=== PATIENT | male | born 1970 | race Caucasian/White ===

== ENCOUNTER 2017-06-26 20:36 | Emergency (ER) | payer MEDICAID ==
[~2017-06-26] VITALS: Ht 188 cm; Wt 93.0 kg
[2017-06-26 21:05] VITALS: BP 152/92
== END 2017-06-26 23:32 | disposition left against medical advice (07) ==
LOC: ER 20:46
DX: R10.9 Unspecified abdominal pain (principal); R11.2 Nausea with vomiting, unspecified; Z53.21 Procedure and treatment not carried out due to patient leaving prior to being seen by health care provider

== ENCOUNTER 2018-02-20 09:59 | Inpatient (IN) | payer MEDICAID ==
[~2018-02-20] VITALS: Ht 188 cm; Wt 88.5 kg
[~2018-02-20 09:59] MED LIST: PANT40T; SUCR1TAB
[2018-02-20 11:15] LABS: Basophils # (auto) 0.1 uL; Basophils % (auto) 1.2 % (0.0-2.0); Eosinophils # (auto) 0.1 uL; Eosinophils % (auto) 1.6 % (0.0-7.0); Hematocrit 44.5 % (41.0-53.0); Hemoglobin 14.9 g/dL (13.5-17.5); Lymphocytes % (auto) 20.2 % (10.0-50.0); Mean Corpuscular Hemoglobin 33.4 pg (28.0-32.0); Mean Corpuscular Hgb Conc. 33.4 g/dL (32.0-36.0); Mean Corpuscular Volume 99.9 fL (80.0-100.0); Monocytes # (auto) 0.7 uL; Monocytes % (auto) 14.2 % (0.0-12.0); Neutrophils # (auto) 3.3 uL; Neutrophils % (auto) 62.8 % (37.0-80.0); Nucleated Red Blood Cells % 0.1 %; Platelet Count (auto) 341 10^3/uL (140-450); Red Blood Cells 4.46 10^6/uL (4.5-5.90); Red Cell Distribution Width 13.8 % (11.8-14.3); White Blood Cell 5.2 10^3/uL (4.4-10.8)
[2018-02-20 11:34] LABS: Albumin 3.3 g/dL (3.4-5.0); BUN/Creatinine Ratio 7.3; Bilirubin, Total 1.9 mg/dL (0.2-1.0); Calcium 8.5 mg/dL (8.5-10.1); Potassium 3.9 mmol/L (3.5-5.1); Total Protein 8.6 g/dL (6.4-8.2)
[2018-02-20] MEDS ORDERED: SODIUM CHLORIDE 0.9% 1,000 ML IVB ONE (11:40)
[2018-02-20] MEDS ORDERED: PANTOPRAZOLE 40 MG/10 ML VIAL IV STA (11:40)
[2018-02-20] MEDS ORDERED: MORPHINE SULFATE 4 MG/ML SYR/VIAL IV ONE (11:45)
[2018-02-20] MEDS ORDERED: METOCLOPRAMIDE HCL 5MG/ml INJ 2ml VIAL IV ONE (11:45)
[2018-02-20 11:59] LABS: Amylase 77 U/L (25-115); Lipase 912 U/L (73-393)
[2018-02-20] MEDS ORDERED: IOHEXOL 300 MG/ML 100ML BOTTLE IJ ONE (13:02)
[2018-02-20] MEDS ORDERED: SODIUM CHLORIDE 0.9% 1,000 ML IV SCH (14:13)
[2018-02-20] MEDS ORDERED: THIAMINE 100mg/ml INJ (200mg/2ml VIAL) IV ONE (14:15)
[2018-02-20] MEDS ORDERED: LORazepam 2MG/ML-1ML VIAL IV PRN (14:15)
[2018-02-20] MEDS ORDERED: chlordiazePOXIDE HCL 25 MG CAP PO PRN (14:15)
[2018-02-20] MEDS ORDERED: MORPHINE SULFATE 4 MG/ML SYR/VIAL IV PRN (14:15)
[2018-02-20] MEDS ORDERED: NITROGLYCERIN 0.4 MG SL TAB SL PRN (14:15)
[2018-02-20] MEDS ORDERED: LEVOFLOXACIN 500MG 100 ML IV ONE (14:30)
[2018-02-20] MEDS: MORPHINE SULFATE 4 MG/ML SYR/VIAL IV PRN ×2 (16:24→21:05)
[2018-02-20 16:33] VITALS: BP 122/76
[2018-02-20 17:10] LABS: INR 1.2 (0.9-1.15); Prothrombin Time 13.1 sec (9.37-12.3)
[2018-02-20] MEDS: LACTATED RINGER'S 1,000 ML IV SCH ×2 (17:44→23:21)
[2018-02-20] MEDS: chlordiazePOXIDE HCL 5 MG CAP PO SCH ×2 (17:44→23:32)
[2018-02-20] MEDS: PROMETHAZINE HCL 25 MG/ML 1ML IV PRN (17:45)
[2018-02-20 17:53] LABS: Urine Bacteria NONE SEEN /hpf (None Seen); Urine Blood Negative /uL (Negative); Urine WBC <1 /hpf (0 - 3)
[2018-02-20] MEDS ORDERED: METH10T PO (17:59)
[2018-02-20] MEDS ORDERED: GABA-339 PO (17:59)
[2018-02-20 18:10] LABS: Hematocrit 41.5 % (41.0-53.0)
[2018-02-20] MEDS: metroNIDAZOLE 500MG/100ML 100 ML IV SCH (21:05)
[2018-02-20] MEDS: PANTOPRAZOLE 40 MG/10 ML VIAL IV SCH (21:05)
[2018-02-20 22:22] VITALS: BP 130/82
[2018-02-21] MEDS: PROMETHAZINE HCL 25 MG/ML 1ML IV PRN ×4 (00:14→19:57)
[2018-02-21] MEDS: KETOROLAC TROMETH 30 MG/ML 1ML VIAL IV ONE ×2 (00:28→00:36)
[2018-02-21] MEDS: MORPHINE SULFATE 4 MG/ML SYR/VIAL IV PRN ×6 (01:01→23:48)
[2018-02-21 01:15] LABS: Hematocrit 41.7 % (41.0-53.0); Hemoglobin 14.2 g/dL (13.5-17.5)
[2018-02-21 04:31] VITALS: BP 144/72
[2018-02-21 05:38] LABS: Basophils # (auto) 0 uL; Eosinophils # (auto) 0 uL; Hemoglobin 14.7 g/dL (13.5-17.5)
[2018-02-21 05:43] LABS: Basophils % (auto) 0.4 % (0.0-2.0); Eosinophils % (auto) 0.3 % (0.0-7.0); Hematocrit 43.2 % (41.0-53.0); Mean Corpuscular Hemoglobin 34.6 pg (28.0-32.0); Mean Corpuscular Hgb Conc. 34.1 g/dL (32.0-36.0); Mean Corpuscular Volume 101.4 fL (80.0-100.0); Monocytes # (auto) 0.9 uL; Monocytes % (auto) 11.1 % (0.0-12.0); Neutrophils # (auto) 6.2 uL; Neutrophils % (auto) 76.2 % (37.0-80.0); Nucleated Red Blood Cells % 0.1 %; Platelet Count (auto) 256 10^3/uL (140-450); Red Blood Cells 4.26 10^6/uL (4.5-5.90); Red Cell Distribution Width 13.6 % (11.8-14.3); White Blood Cell 8.1 10^3/uL (4.4-10.8)
[2018-02-21 06:23] LABS: Albumin 2.7 g/dL (3.4-5.0); BUN/Creatinine Ratio 8.5; Calcium 7.9 mg/dL (8.5-10.1); Potassium 3.8 mmol/L (3.5-5.1)
[2018-02-21] MEDS: chlordiazePOXIDE HCL 5 MG CAP PO SCH ×3 (06:26→23:47)
[2018-02-21] MEDS: metroNIDAZOLE 500MG/100ML 100 ML IV SCH (06:26)
[2018-02-21] MEDS: LACTATED RINGER'S 1,000 ML IV SCH ×3 (06:27→18:34)
[2018-02-21 06:39] LABS: Bilirubin, Total 3.5 mg/dL (0.2-1.0); Total Protein 7.8 g/dL (6.4-8.2)
[2018-02-21 07:00] VITALS: BP 138/69
[2018-02-21 07:51] LABS: Cholesterol 122 mg/dL (< 200); HDL Cholesterol 37 mg/dL (40-59); LDL Cholesterol 81 mg/dL (< 100); Triglycerides 94 mg/dL (< 150)
[2018-02-21] MEDS ORDERED: LIDOCAINE VISCOUS 2% 15ML UD ONE (08:21)
[2018-02-21] MEDS ORDERED: diphenhdrAMINE HCL 50 MG/1 ML VL ONE (08:22)
[2018-02-21] MEDS: PANTOPRAZOLE 40 MG/10 ML VIAL IV SCH ×2 (09:01→21:57)
[2018-02-21] MEDS: THIAMINE 100mg/ml INJ (200mg/2ml VIAL) IV SCH (09:02)
[2018-02-21] MEDS ORDERED: LEVOFLOXACIN 500MG 100 ML IV SCH (10:00)
[2018-02-21] MEDS: MIDAZOLAM HCL 5 MG/ML-1ML VIAL ONE ×3 (10:48→10:54)
[2018-02-21] MEDS: fentaNYL CITRATE 100 MCG/2 ML VL ONE ×2 (10:48→10:51)
[2018-02-21 12:03] VITALS: BP 146/91
[2018-02-21] MEDS ORDERED: METHADONE HCL 10 MG TAB PO ONE (13:00)
[2018-02-21 15:21] LABS: Alcohol, Urine < 3.0 mg/dL (0-5); Amphetamine Screen, Urine NEGATIVE (NEGATIVE); Barbiturate Scree,Urine NEGATIVE (NEGATIVE); Benzodiazephine Screen, Urine POSITIVE (NEGATIVE); Cannabinoid Screen, Urine NEGATIVE (NEGATIVE); Cocaine Screen, Urine NEGATIVE (NEGATIVE); Opiate Scree,Urine POSITIVE (NEGATIVE); Phencyclidine Screen, Urine POSITIVE (NEGATIVE)
[2018-02-21 16:31] VITALS: BP 158/88
[2018-02-21 22:24] VITALS: BP 156/85
[2018-02-22] MEDS: LACTATED RINGER'S 1,000 ML IV SCH ×3 (00:30→15:00)
[2018-02-22] MEDS: MORPHINE SULFATE 4 MG/ML SYR/VIAL IV PRN ×3 (03:59→12:18)
[2018-02-22 05:15] VITALS: BP 142/77
[2018-02-22] MEDS: chlordiazePOXIDE HCL 5 MG CAP PO SCH ×2 (05:59→11:55)
[2018-02-22 06:27] LABS: Eosinophils # (auto) 0.2 uL; Hemoglobin 14.6 g/dL (13.5-17.5); Lymphocytes # (auto) 1.4 uL; Mean Corpuscular Volume 100.4 fL (80.0-100.0); Red Cell Distribution Width 13.2 % (11.8-14.3); White Blood Cell 7.3 10^3/uL (4.4-10.8)
[2018-02-22 06:30] LABS: Basophils # (auto) 0.1 uL; Basophils % (auto) 1.1 % (0.0-2.0); Eosinophils % (auto) 3.1 % (0.0-7.0); Hematocrit 41.8 % (41.0-53.0); Lymphocytes % (auto) 19.4 % (10.0-50.0); Mean Corpuscular Hgb Conc. 34.9 g/dL (32.0-36.0); Monocytes % (auto) 14.3 % (0.0-12.0); Neutrophils # (auto) 4.5 uL; Neutrophils % (auto) 62.1 % (37.0-80.0); Nucleated Red Blood Cells % 0.4 %; Platelet Count (auto) 232 10^3/uL (140-450); Red Blood Cells 4.16 10^6/uL (4.5-5.90)
[2018-02-22 06:31] LABS: Mean Corpuscular Hemoglobin 34.5 pg (28.0-32.0)
[2018-02-22 06:48] LABS: Potassium 3.8 mmol/L (3.5-5.1)
[2018-02-22 06:57] LABS: Albumin 2.6 g/dL (3.4-5.0); BUN/Creatinine Ratio 10.5; Bilirubin, Total 6.7 mg/dL (0.2-1.0); Calcium 7.9 mg/dL (8.5-10.1); Total Protein 7.4 g/dL (6.4-8.2)
[2018-02-22 08:30] VITALS: BP 125/74
[2018-02-22] MEDS ORDERED: METHADONE HCL 10 MG TAB PO SCH (10:00)
[2018-02-22] MEDS ORDERED: FOLIC ACID 1 MG TAB PO SCH (10:00)
[2018-02-22] MEDS: PANTOPRAZOLE 40 MG/10 ML VIAL IV SCH (10:04)
[2018-02-22] MEDS: THIAMINE 100mg/ml INJ (200mg/2ml VIAL) IV SCH (10:05)
[2018-02-22 12:30] VITALS: BP 147/87
== END 2018-02-22 15:54 | disposition left against medical advice (07) | DRG 282 ==
LOC: ER 09:59 → TELE-DOU 10:00 → TELE-EAST 16:00
PROVIDERS: ADMIT Internal Medicine; ATTEND Internal Medicine
PROC: 0DJ08ZZ Inspection of Upper Intestinal Tract, Via Natural or Artificial Opening Endoscopic (ICD-10-PCS; principal; 2018-02-21 10:46)
DX: K85.20 Alcohol induced acute pancreatitis without necrosis or infection (principal); K92.0 Hematemesis; E44.0 Moderate protein-calorie malnutrition; K76.0 Fatty (change of) liver, not elsewhere classified; K70.9 Alcoholic liver disease, unspecified; E78.5 Hyperlipidemia, unspecified; F41.9 Anxiety disorder, unspecified; F10.20 Alcohol dependence, uncomplicated; F11.90 Opioid use, unspecified, uncomplicated; F17.210 Nicotine dependence, cigarettes, uncomplicated; Z53.21 Procedure and treatment not carried out due to patient leaving prior to being seen by health care provider; K59.00 Constipation, unspecified; Z82.3 Family history of stroke; Z82.49 Family history of ischemic heart disease and other diseases of the circulatory system; Z86.73 Personal history of transient ischemic attack (TIA), and cerebral infarction without residual deficits; Z88.0 Allergy status to penicillin; Z88.2 Allergy status to sulfonamides; Z79.899 Other long term (current) drug therapy
CPT/HCPCS: 36415; 43235; 71045; 74177; 80053; 80061; 80307; 81001; 82140; 82150; 82248; 82270; 83690; 85014; 85018; 85025; 85045; 85610; 96361; 96365; 96367; 96375; C9113; J1885; J1956; J2250; J3490